=== PATIENT | male | born 1995 | race African-American/Black ===

== ENCOUNTER 2017-01-08 09:31 | Emergency (ER) | payer SELFPAY ==
[2017-01-08] MEDS ORDERED: Ondansetron HCl/PF 4 MG/2 ML Vial ONE (09:49)
[2017-01-08] MEDS ORDERED: Pantoprazole 40 MG VIAL ONE (09:49)
[2017-01-08 10:00] LABS: #Lymphocytes 1.4 thou/uL (1.20-3.40); #Monocytes 0.4 thou/uL (0.11-0.59); #Neutrophils 3.2 thou/uL (1.40-6.50); %Basophils 0.8 % (0.0-1.0); %Eosinophils 0.6 % (0.0-10.0); %Lymphocytes 27.9 % (21.0-51.0); %Monocytes 8.4 % (0.0-10.0); Hematocrit 43.4 % (42.0-52.0); Mean Platelet Volume 8.4 fL (7.4-10.4); Red Blood Cell (RBC) Count 4.61 mill/uL (4.70-6.10); White Blood Cell (WBC) Count 5.2 thou/uL (4.8-10.8)
[2017-01-08 10:13] LABS: ALT (SGPT) 8 U/L (8-55); AST (SGOT) 14 U/L (5-34); Alkaline Phosphatase 73 U/L (40-150); Anion Gap 12 mmol/L (10-20); BUN (Urea Nitrogen) 10 mg/dL (8.9-20.6); Calc. Creatinine Clearance 0 mL/min (70-130); Calcium 9.8 mg/dL (7.8-10.44); Carbon Dioxide 28 mmol/L (22-29); Chloride 106 mmol/L (98-107); Estimated GFR-MDRD Greater than 90; Globulin 2.8 g/dL (2.4-3.5); Lipase 5 U/L (8-78); Protein, Total 7.4 g/dL (6.0-8.3)
== END 2017-01-08 10:45 | disposition home or self-care (01) ==
LOC: ERS 09:31
DX: R11.2 Nausea with vomiting, unspecified (principal); R19.7 Diarrhea, unspecified; R10.9 Unspecified abdominal pain
CPT/HCPCS: 36415; 80053; 83690; 85025; 96374; 96375; C9113; J2405

== ENCOUNTER 2017-10-07 18:40 | Emergency (ER) | payer OTHER, SELFPAY ==
[2017-10-07 19:50] LABS: #Lymphocytes 1.8 thou/uL (1.20-3.40); #Monocytes 0.7 thou/uL (0.11-0.59); #Neutrophils 6.1 thou/uL (1.40-6.50); %Basophils 0.3 % (0.0-1.0); %Eosinophils 0.4 % (0.0-10.0); %Lymphocytes 21.1 % (21.0-51.0); %Monocytes 8.2 % (0.0-10.0); %Neutrophils 69.9 % (42.0-75.0); Hemoglobin 14.3 g/dL (14.0-18.0); Mean Corpuscular HGB CONC 34.9 g/dL (32.0-36.0); Mean Corpuscular Volume 91.8 fL (78.0-98.0); Mean Platelet Volume 8.6 fL (7.4-10.4); Platelet Count 180 thou/uL (130-400); RBC Distribution Width 11.8 % (11.5-14.5); Red Blood Cell (RBC) Count 4.48 mill/uL (4.70-6.10); White Blood Cell (WBC) Count 8.7 thou/uL (4.8-10.8)
[2017-10-07 20:07] LABS: CK (CPK) 642 U/L (30-200); Lipase 14 U/L (8-78)
[2017-10-07 20:14] LABS: Albumin 4.7 g/dL (3.5-5.0); Anion Gap 13 mmol/L (10-20); BUN (Urea Nitrogen) 9 mg/dL (8.9-20.6); Bilirubin, Total 1.6 mg/dL (0.2-1.2); Calc. Creatinine Clearance 0 mL/min (70-130); Calcium 9.8 mg/dL (7.8-10.44); Carbon Dioxide 25 mmol/L (22-29); Chloride 106 mmol/L (98-107); Estimated GFR-MDRD Greater than 90; Globulin 2.6 g/dL (2.4-3.5); Glucose 90 mg/dL (70-105); Protein, Total 7.3 g/dL (6.0-8.3); Sodium 141 mmol/L (136-145)
[2017-10-07 20:15] LABS: ALT (SGPT) 11 U/L (8-55); AST (SGOT) 22 U/L (5-34); Alkaline Phosphatase 75 U/L (40-150)
--- NOTE | 2017-10-07 20:16 | CT ---
CT BRAIN NONCONTRAST: 10/07/17 HISTORY: 22-year-old male status post seizure, resulting in fall and head trauma. FINDINGS: The ventricles are normal in size and configuration. There is no midline shift or any other mass eff ect. There is no evidence of acute intracranial hemorrhage, large cortical infarct, or extraaxial fl uid collection. The vick matter /white matter differentiation is maintained. The calvarium is intac t. The tympanomastoid cavities, and the upper portions of the paranasal sinuses included in these im ages, are grossly clear. IMPRESSION: Normal. jn [] POS: [facility]
--- NOTE | 2017-10-07 20:18 | CT ---
CT MAXILLOFACIAL NONCONTRAST: 10/07/17 HISTORY: 22-year-old male status post acute facial trauma from fall due to loss of consciousness from seizure. FINDINGS: Mild right infraorbital superficial soft tissue swelling. No discrete hematoma. Orbits are clear. No fracture. TMJs and mandible are intact. The paranasal sinuses are clear. IMPRESSION: 1. Mild, acute, traumatic, right infraorbital soft tissue edema. 2. Otherwise negative. POS: [facility]
[2017-10-07 20:22] LABS: Potassium 2.9 mmol/L (3.5-5.1)
[2017-10-07] MEDS ORDERED: Ibuprofen 200 MG TAB ONE (21:30)
[2017-10-07] MEDS ORDERED: Adacel (T-DAP) 0.5 ML VIAL ONE (21:31)
== END 2017-10-07 21:00 ==
LOC: ERS 18:40
DX: S00.81XA Abrasion of other part of head, initial encounter (principal); R56.9 Unspecified convulsions; F31.9 Bipolar disorder, unspecified; W22.8XXA Striking against or struck by other objects, initial encounter
CPT/HCPCS: 36415; 70450; 70486; 80053; 82550; 83690; 83735; 85025; 90715

== ENCOUNTER 2021-04-26 00:31 | Emergency (ER) | payer SELFPAY ==
[2021-04-26] MEDS ORDERED: Ondansetron ODT 4 MG TAB ONE (01:51)
[2021-04-26 17:13] LABS: SARS-CoV-2 PCR by NAA Not Detected (NotDetected)
== END 2021-04-26 02:48 | disposition home or self-care (01) ==
LOC: ERS 00:31
DX: R11.2 Nausea with vomiting, unspecified (principal); Z20.822 Contact with and (suspected) exposure to COVID-19
CPT/HCPCS: 99283; Q0162; U0003; U0005

== ENCOUNTER 2021-05-30 12:53 | Emergency (ER) | payer SELFPAY | END 2021-05-30 14:50 | disposition home or self-care (01) | LOC: ERS 12:53 | DX: N48.1 Balanitis (principal); L25.1 Unspecified contact dermatitis due to drugs in contact with skin; T38.0X5A Adverse effect of glucocorticoids and synthetic analogues, initial encounter | CPT/HCPCS: 99282 ==

== ENCOUNTER 2021-06-27 13:54 | Inpatient (IN) | payer SELFPAY ==
[2021-06-27] MEDS ORDERED: Boostrix 0.5 ML (Tdap) VIAL ONE (13:57)
[2021-06-27] MEDS ORDERED: ceFAZolin 2 GM/Dextrose 50 ML IVPB ONE (13:57)
[2021-06-27 14:18] LABS: #Basophils 0.1 thou/uL (0.0-0.2); #Eosinphils 0.1 thou/uL (0.0-0.7); #Lymphocytes 3.3 thou/uL (1.20-3.40); #Monocytes 0.7 thou/uL (0.11-0.59); #Neutrophils 5.1 thou/uL (1.40-6.50); %Basophils 0.6 % (0.0-1.0); %Eosinophils 1.6 % (0.0-10.0); %Lymphocytes 35.3 % (21.0-51.0); %Monocytes 7.2 % (0.0-10.0); %Neutrophils 55.2 % (42.0-75.0); Hemoglobin 13.4 g/dL (14.0-18.0); Mean Corpuscular HGB CONC 33.2 g/dL (32.0-36.0); Mean Corpuscular Hemoglobin 32.2 pg (27.0-31.0); Mean Corpuscular Volume 96.9 fL (78.0-98.0); Mean Platelet Volume 8.9 fL (7.4-10.4); Platelet Count 222 thou/uL (130-400); RBC Distribution Width 12.5 % (11.5-14.5); Red Blood Cell (RBC) Count 4.16 mill/uL (4.70-6.10); White Blood Cell (WBC) Count 9.2 thou/uL (4.8-10.8)
[2021-06-27 14:26] LABS: INR-International Normal Ratio 1.1; PTT 25.4 sec (22.9-36.1); Prothrombin Time 13.8 sec (12.0-14.7)
[2021-06-27 14:27] LABS: ALT (SGPT) 72 U/L (8-55); AST (SGOT) 32 U/L (5-34); Albumin 4.2 g/dL (3.5-5.0); Alkaline Phosphatase 66 U/L (40-110); Anion Gap 12 mmol/L (10-20); BUN (Urea Nitrogen) 7 mg/dL (8.9-20.6); Bilirubin, Total 0.7 mg/dL (0.2-1.2); Calc. Creatinine Clearance 0 mL/min (70-130); Carbon Dioxide 26 mmol/L (22-29); Chloride 105 mmol/L (98-107); Globulin 2.6 g/dL (2.4-3.5); Glucose 152 mg/dL (70-105); Potassium 3.2 mmol/L (3.5-5.1); Protein, Total 6.8 g/dL (6.0-8.3); Sodium 140 mmol/L (136-145)
[2021-06-27 14:28] LABS: Lactic Acid 5.7 mmol/L (0.5-2.2)
[2021-06-27] MEDS ORDERED: Fentanyl 100 MCG/2 ML VIAL ONE ×4 (14:33→17:43)
[2021-06-27] MEDS ORDERED: Acetaminophen 325 MG TAB PO PRN (14:45)
[2021-06-27] MEDS ORDERED: Ondansetron PF 4 MG/2 ML Vial IVP PRN (14:45)
[2021-06-27] MEDS ORDERED: traMADol HCl 50 MG TAB PO PRN (14:48)
[2021-06-27] MEDS ORDERED: Ondansetron PF 4 MG/2 ML Vial ONE (15:03)
[2021-06-27] MEDS ORDERED: Morphine 4 MG/ML VIAL ONE (15:03)
[2021-06-27] MEDS ORDERED: Ibuprofen 200 MG TAB PO PRN (15:07)
[2021-06-27] MEDS ORDERED: Succinylcholine 200 MG/10 ml SYRINGE FS ONE (15:20)
[2021-06-27] MEDS ORDERED: Rocuronium Bromide 10 MG/ML (10ML VIAL) ONE (15:20)
[2021-06-27] MEDS ORDERED: PROPOFOL 200 MG/20 ML VIAL ONE (15:20)
[2021-06-27] MEDS ORDERED: Lidocaine 1% PF 5 ML VIAL ONE (15:20)
[2021-06-27] MEDS ORDERED: Fentanyl 250 MCG/5 ML VIAL ONE (16:32)
[2021-06-27] MEDS ORDERED: SUGAMMADEX SODIUM 200 MG/2 ML VIAL ONE (16:38)
[2021-06-27] MEDS ORDERED: Promethazine HCl 25 MG/ML VIAL IM PRN (16:55)
[2021-06-27] MEDS ORDERED: HYDROmorphone 2 MG/ML VIAL SLOW IVP PRN (16:55)
[2021-06-27] MEDS ORDERED: Ondansetron HCl/PF 4 MG/2 ML Vial IVP PRN (16:55)
[2021-06-27] MEDS ORDERED: Promethazine HCl 25 MG/ML VIAL IVPB PRN (16:55)
[2021-06-27] MEDS ORDERED: HYDROmorphone 0.5 MG/0.5 ML SYRINGE ONE (17:24)
[2021-06-27 17:35] LABS: SARS-CoV-2 NAA Rapid Test Not Detected (NotDetected)
[2021-06-27] MEDS ORDERED: traMADol HCl 50 MG TAB PO SCH (18:00)
[2021-06-27] MEDS: Sodium Chloride 0.9% 1,000 ML IV SCH (19:35)
[2021-06-27] MEDS: Famotidine 20 MG TAB PO SCH (19:36)
[2021-06-27] MEDS: Cyclobenzaprine 10 MG TAB PO PRN (19:36)
[2021-06-27] MEDS: Senokot S 8.6-50 MG TAB PO SCH (19:37)
[2021-06-27] MEDS: Morphine 4 MG/ML VIAL SLOW IVP PRN (20:50)
[2021-06-27 21:57] VITALS: BMI 25.7
[2021-06-27] MEDS: ceFAZolin Sodium/D5W 2 GM in Premix Bag 1 BAG IVPB SCH (22:40)
[2021-06-27] MEDS: Ketorolac Tromethamine 30 MG/ML VIAL IVP SCH (22:40)
[2021-06-28] MEDS: traMADol HCl 50 MG TAB PO SCH ×4 (01:19→17:18)
[2021-06-28] MEDS: Sodium Chloride 0.9% 1,000 ML IV SCH ×2 (01:19→07:45)
[2021-06-28] MEDS: Morphine 4 MG/ML VIAL SLOW IVP PRN (03:59)
[2021-06-28 05:48] LABS: Lactic Acid 1.6 mmol/L (0.5-2.2)
[2021-06-28 05:51] LABS: #Lymphocytes 1.6 thou/uL (1.20-3.40); #Monocytes 0.9 thou/uL (0.11-0.59); #Neutrophils 6.9 thou/uL (1.40-6.50); %Eosinophils 0.2 % (0.0-10.0); %Lymphocytes 17.1 % (21.0-51.0); %Monocytes 9.9 % (0.0-10.0); %Neutrophils 72.8 % (42.0-75.0); Hemoglobin 10.3 g/dL (14.0-18.0); Mean Corpuscular HGB CONC 33.3 g/dL (32.0-36.0); Mean Corpuscular Hemoglobin 32.3 pg (27.0-31.0); Mean Corpuscular Volume 96.8 fL (78.0-98.0); Mean Platelet Volume 8.8 fL (7.4-10.4); Platelet Count 168 thou/uL (130-400); RBC Distribution Width 12.4 % (11.5-14.5); White Blood Cell (WBC) Count 9.4 thou/uL (4.8-10.8)
[2021-06-28] MEDS: ceFAZolin Sodium/D5W 2 GM in Premix Bag 1 BAG IVPB SCH ×2 (06:03→15:08)
[2021-06-28] MEDS: Ketorolac Tromethamine 30 MG/ML VIAL IVP SCH (06:04)
[2021-06-28 06:12] LABS: Anion Gap 11 mmol/L (10-20); BUN (Urea Nitrogen) 7 mg/dL (8.9-20.6); Calc. Creatinine Clearance 162 mL/min (70-130); Carbon Dioxide 25 mmol/L (22-29); Chloride 105 mmol/L (98-107); Glucose 123 mg/dL (70-105); Potassium 3.5 mmol/L (3.5-5.1); Sodium 137 mmol/L (136-145)
[2021-06-28] MEDS ORDERED: Acetaminophen 325 MG TAB PO SCH (08:00)
[2021-06-28] MEDS ORDERED: Ibuprofen 200 MG TAB PO SCH (09:30)
[2021-06-28] MEDS: Acetaminophen 500 MG TAB PO SCH ×3 (09:42→19:32)
[2021-06-28] MEDS: Senokot S 8.6-50 MG TAB PO SCH ×2 (09:42→19:31)
[2021-06-28] MEDS: Famotidine 20 MG TAB PO SCH ×2 (09:42→19:31)
[2021-06-28] MEDS: Cyclobenzaprine 10 MG TAB PO PRN ×2 (09:42→19:31)
[2021-06-28] MEDS: Pregabalin 50 MG CAP PO SCH ×2 (09:42→21:13)
[2021-06-28] MEDS: Polyethylene Glycol 3350 17 GM Packet PO SCH (09:43)
[2021-06-28] MEDS ORDERED: Potassium Chloride 20 MEQ TAB PO SCH (11:30)
[2021-06-28] MEDS ORDERED: Ketorolac Tromethamine 30 MG/ML VIAL IVP SCH (12:00)
[2021-06-28] MEDS: Ibuprofen 200 MG TAB PO SCH (21:55)
[2021-06-29] MEDS: traMADol HCl 50 MG TAB PO SCH ×2 (00:08→05:21)
[2021-06-29] MEDS: Acetaminophen 500 MG TAB PO SCH ×2 (03:07→08:31)
[2021-06-29] MEDS: Ibuprofen 200 MG TAB PO SCH ×2 (05:20→14:29)
[2021-06-29] MEDS: Cyclobenzaprine 10 MG TAB PO PRN ×2 (05:21→12:12)
[2021-06-29] MEDS ORDERED: Ibuprofen 200 MG TAB PO SCH (06:00)
[2021-06-29] MEDS: Enoxaparin Sodium 40 MG/0.4 ML SYRINGE SC SCH (08:31)
[2021-06-29] MEDS: Famotidine 20 MG TAB PO SCH ×2 (08:32→20:39)
[2021-06-29] MEDS: Pregabalin 50 MG CAP PO SCH (08:32)
[2021-06-29] MEDS: Senokot S 8.6-50 MG TAB PO SCH ×2 (08:32→20:40)
[2021-06-29] MEDS: Polyethylene Glycol 3350 17 GM Packet PO SCH (08:36)
[2021-06-29] MEDS: Acetaminophen/Codeine 30-300mg Tablet PO SCH ×4 (09:35→20:38)
[2021-06-29] MEDS ORDERED: Ketorolac Tromethamine 30 MG/ML VIAL IVP SCH ×2 (14:30→18:00)
[2021-06-29] MEDS ORDERED: DULoxetine 30 MG CAP PO SCH (14:59)
[2021-06-29] MEDS: traMADol HCl 50 MG TAB PO PRN (15:27)
[2021-06-29] MEDS: Pentazocine HCl/Naloxone HCl 50/0.5 MG TAB PO SCH ×2 (16:52→23:07)
[2021-06-29] MEDS ORDERED: Promethazine HCl 12.5 MG in Sodium Chloride 0.9% 50 ML IVPB PRN (17:52)
[2021-06-29] MEDS ORDERED: Scopolamine 1.5 mg/72 hour Patch TD SCH (18:00)
[2021-06-29] MEDS: Ketorolac Tromethamine 30 MG/ML VIAL IVP SCH (20:38)
[2021-06-29] MEDS: Pregabalin 75 MG CAP PO SCH (20:39)
[2021-06-30] MEDS: Acetaminophen/Codeine 30-300mg Tablet PO SCH ×4 (02:27→12:35)
[2021-06-30] MEDS: Ketorolac Tromethamine 30 MG/ML VIAL IVP SCH (02:28)
[2021-06-30] MEDS: Cyclobenzaprine 10 MG TAB PO PRN ×2 (02:28→15:13)
[2021-06-30] MEDS: Pentazocine HCl/Naloxone HCl 50/0.5 MG TAB PO SCH (05:42)
[2021-06-30] MEDS: Senokot S 8.6-50 MG TAB PO SCH (08:03)
[2021-06-30] MEDS: Diclofenac Sodium 50 MG DR TAB PO SCH ×2 (08:04→12:35)
[2021-06-30] MEDS: Famotidine 20 MG TAB PO SCH (08:04)
[2021-06-30] MEDS: Pregabalin 75 MG CAP PO SCH (08:05)
[2021-06-30] MEDS: Enoxaparin Sodium 40 MG/0.4 ML SYRINGE SC SCH (08:06)
[2021-06-30] MEDS: Polyethylene Glycol 3350 17 GM Packet PO SCH (08:07)
[2021-06-30] MEDS ORDERED: Magnesium Citrate 300 ML BOT PO SCH (09:00)
[2021-06-30] MEDS: traMADol HCl 50 MG TAB PO PRN (15:14)
[2021-06-30 16:11] VITALS: BP 138/76; TEMP 98.2
== END 2021-06-30 15:57 | disposition home or self-care (01) | DRG 481 ==
LOC: ERS 13:54 → SDC 15:14 → SURG B 15:15 → EEVIPCON 15:15
PROVIDERS: ADMIT Orthopaedic Surgery; ATTEND Orthopaedic Surgery
PROC: 0QHB36Z Insertion of Intramedullary Internal Fixation Device into Right Lower Femur, Percutaneous Approach (ICD-10-PCS; principal; 2021-06-27)
DX: S72.491B Other fracture of lower end of right femur, initial encounter for open fracture type I or II (principal); E87.2 Acidosis; Z20.822 Contact with and (suspected) exposure to COVID-19; F31.9 Bipolar disorder, unspecified; W34.00XA Accidental discharge from unspecified firearms or gun, initial encounter; F17.210 Nicotine dependence, cigarettes, uncomplicated; S71.142A Puncture wound with foreign body, left thigh, initial encounter; S71.141A Puncture wound with foreign body, right thigh, initial encounter; E87.6 Hypokalemia
CPT/HCPCS: 36415; 71045; 74018; 75635; 76000; 80048; 80053; 83605; 85025; 85610; 85730; 86850; 86900; 86901; 90471; 90715; 96374; 96375; 96376; C1713; G0390; J0690; J1170; J1650; J1885; J2270; J2405; J2704; J3010; J7050; U0002

== ENCOUNTER 2021-07-06 21:39 | Inpatient (IN) | payer OTHER, SELFPAY ==
[2021-07-07 00:39] VITALS: BMI 25.7
[2021-07-11 12:04] VITALS: TEMP 98.1
[2021-07-11 16:10] VITALS: BP 155/87
== END 2021-07-11 16:30 | disposition home or self-care (01) | DRG 857 ==
LOC: SURG A 21:39 → EEVIPCON 21:39 → EDBD 21:39
PROVIDERS: ADMIT Surgery; ATTEND Surgery
PROC: 0MDP0ZZ Extraction of Left Knee Bursa and Ligament, Open Approach (ICD-10-PCS; principal; 2021-07-07)
PROC: 0HDHXZZ Extraction of Right Upper Leg Skin, External Approach (ICD-10-PCS; 2021-07-07)
DX: T81.41XA Infection following a procedure, superficial incisional surgical site, initial encounter (principal); L03.115 Cellulitis of right lower limb; D62 Acute posthemorrhagic anemia; Z20.822 Contact with and (suspected) exposure to COVID-19; L23.0 Allergic contact dermatitis due to metals; B95.62 Methicillin resistant Staphylococcus aureus infection as the cause of diseases classified elsewhere; B96.89 Other specified bacterial agents as the cause of diseases classified elsewhere; Y83.8 Other surgical procedures as the cause of abnormal reaction of the patient, or of later complication, without mention of misadventure at the time of the procedure
CPT/HCPCS: 36415; 80048; 80202; 82550; 83735; 84100; 85025; 85652; 86140; 87389; J0696; J1100; J1170; J1650; J2185; J2250; J2270; J2405; J2543; J2704; J3010; J3370; J3490; U0002

== ENCOUNTER 2021-12-12 09:20 | Emergency (ER) | payer OTHER, SELFPAY ==
[2021-12-12] MEDS ORDERED: Ketorolac Tromethamine 30 MG/ML VIAL ONE (10:03)
[2021-12-12] MEDS ORDERED: Ondansetron PF 4 MG/2 ML Vial ONE (10:03)
[2021-12-12 10:23] LABS: #Basophils 0.1 thou/uL (0.0-0.2); #Lymphocytes 1.8 thou/uL (1.20-3.40); #Monocytes 0.6 thou/uL (0.11-0.59); #Neutrophils 4.7 thou/uL (1.40-6.50); %Eosinophils 0.3 % (0.0-10.0); %Lymphocytes 25.4 % (21.0-51.0); %Monocytes 8.5 % (0.0-10.0); %Neutrophils 64.8 % (42.0-75.0); Hemoglobin 15.1 g/dL (14.0-18.0); Mean Corpuscular HGB CONC 33.7 g/dL (32.0-36.0); Mean Corpuscular Hemoglobin 30.9 pg (27.0-31.0); Mean Corpuscular Volume 91.5 fL (78.0-98.0); Mean Platelet Volume 9.3 fL (7.4-10.4); Platelet Count 213 thou/uL (130-400); RBC Distribution Width 13.7 % (11.5-14.5); White Blood Cell (WBC) Count 7.3 thou/uL (4.8-10.8)
[2021-12-12 10:45] LABS: ALT (SGPT) 19 U/L (8-55); AST (SGOT) 26 U/L (5-34); Albumin 4.9 g/dL (3.5-5.0); Alkaline Phosphatase 192 U/L (40-110); Anion Gap 15 mmol/L (10-20); BUN (Urea Nitrogen) 6 mg/dL (8.9-20.6); Bilirubin, Total 2.4 mg/dL (0.2-1.2); Calc. Creatinine Clearance 0 mL/min (70-130); Calcium 10.1 mg/dL (7.8-10.44); Carbon Dioxide 30 mmol/L (22-29); Chloride 100 mmol/L (98-107); Estimated GFR 124; Globulin 2.9 g/dL (2.4-3.5); Glucose 91 mg/dL (70-105); Potassium 3.1 mmol/L (3.5-5.1); Protein, Total 7.8 g/dL (6.0-8.3); Sodium 142 mmol/L (136-145)
== END 2021-12-12 11:23 | disposition home or self-care (01) ==
LOC: ERS 09:20
DX: B34.9 Viral infection, unspecified (principal); F17.210 Nicotine dependence, cigarettes, uncomplicated
CPT/HCPCS: 80053; 83605; 85025; 94760; 96361; 96374; 96375; J1885; J2405